=== PATIENT | female | born 1995 | race Caucasian/White ===

== ENCOUNTER 2024-03-04 19:30 | Emergency (ER) | payer OTHER ==
[2024-03-04 20:33] LABS: BASO % 0.3 % (0.0-1.0); EOS # 0.1 10*3/uL (0.0-0.4); EOS % 1.1 % (1.0-4.0); HEMATOCRIT 41.7 % (37.0-47.0); LYMPH # 2.3 10*3/uL (1.3-4.4); LYMPH % 22.9 % (27.0-41.0); MEAN CELL VOLUME 91.9 fl (81.0-99.0); MEAN CORPUSCULAR HGB 31.7 pg (27.0-31.0); MEAN CORPUSCULAR HGB CONC 34.5 g/dl (33.0-37.0); MEAN PLATELET VOLUME 8.6 fl (9.6-12.3); MONO % 9.9 % (3.0-9.0); NEUT # 6.5 10*3/uL (2.3-7.9); NEUT % 65.6 % (47.0-73.0); PLATELET COUNT AUTOMATED 301 10*3/uL (130-400); RED BLOOD COUNT 4.54 10*6/uL (4.10-5.10); RED CELL DISTRI WIDTH 12.7 % (0-14.5); WHITE BLOOD COUNT 9.9 10*3/uL (4.8-10.8)
[2024-03-04 20:51] LABS: ALKALINE PHOSPHATASE 40 U/L (46-116); BUN 7 mg/dl (9-23); CHLORIDE 108 mmol/L (98-107); ETHYL ALCOHOL < 3.0 mg/dl (<3); POTASSIUM 3.4 mmol/L (3.4-5.1); SGPT/ALT 27 U/L (5-49)
[2024-03-04 21:33] LABS: BILIRUBIN Negative (Negative); BLOOD Negative (Negative); CLARITY Turbid (Clear); COLOR Yellow (Yellow); GLUCOSE Negative (Negative); KETONE Negative (Negative); LEUKO ESTERASE 2+ (Negative); NITRITE Negative (Negative); SPECIFIC GRAVITY 1.015 (1.001-1.030)
[2024-03-04 21:40] LABS: URINE AMPHETAMINES Positive (1000ng/ml); URINE BARBITURATES Negative (200ng/ml); URINE BENZODIAZEPINES Negative (200ng/ml); URINE CANNABINOIDS (THC) Positive (50ng/ml); URINE COCAINE Negative (300ng/ml); URINE METHADONE Negative (300ng/ml); URINE OPIATES Negative (300ng/ml); URINE PHENCYCLIDINE Negative (25ng/ml)
[2024-03-04] MEDS ORDERED: VYVANSE60 MG PO (21:56)
[2024-03-04 21:57] LABS: BACTERIA 2+
[2024-03-04] MEDS ORDERED: LAMOTRIGINE200 MG PO (21:57)
[2024-03-04] MEDS ORDERED: BUPROPION XL300 MG PO (21:57)
[2024-03-04] MEDS ORDERED: FLUOXETINE HCL40 MG PO (21:58)
[2024-03-04] MEDS ORDERED: ZOLPIDEM10 MG PO (21:58)
[2024-03-04] MEDS ORDERED: LARIN FE 1-201 EACH PO (21:59)
[2024-03-04] MEDS ORDERED: OMNICEF300 MG PO (22:29)
[2024-03-04] MEDS ORDERED: Water, Sterile 10 ML VIAL ONE (22:52)
== END 2024-03-04 22:33 | disposition home or self-care (01) ==
LOC: ED 19:30
PROVIDERS: Nurse Practitioner Family
DX: N39.0 Urinary tract infection, site not specified (principal); G47.00 Insomnia, unspecified; R07.89 Other chest pain; R25.2 Cramp and spasm; F32.A Depression, unspecified; F41.9 Anxiety disorder, unspecified; F84.0 Autistic disorder; Z91.040 Latex allergy status; Z79.899 Other long term (current) drug therapy